=== PATIENT | male | born 1965 | race Caucasian/White ===

== ENCOUNTER 2018-07-26 12:05 | Emergency (ER) | payer BC, SELFPAY ==
[2018-07-26 12:07] VITALS: BP 142/84; PULSE 120; RESP 16; TEMP 37.6; O2SAT 96; BMI 28.6
--- NOTE | 2018-07-26 12:22 | CT_ITS ---
STUDY: CT ABDOMEN AND PELVIS WITH CONTRAST REASON FOR EXAM: Male, 52 years old. Diarrhea. RADIATION DOSAGE (If Supplied By Facility): CTDIvol = ( 13.48 ) mGy, DLP = ( 932.43 ) mGycm TECHNIQUE: Transaxial images were obtained from the dome of the diaphragm to the symphysis pubis without oral contrast. 100 ml of Isovue 300 contrast was administered. Sagittal and coronal images were reconstructed. Individualized dose optimization techniques were used for this CT. COMPARISON: None. FINDINGS: The visualized lung bases are unremarkable. The visualized portions of the heart are within normal limits. Normal liver. Normal gallbladder and extrahepatic biliary system. There is mild splenomegaly. There is heterogeneous enhancement of the spleen with multiple diminished enhancement regions measuring up to 1.5 cm. Normal pancreas. Normal bilateral adrenal glands. There is 0.5 cm stone in the upper pole of the right kidney. Normal left kidney. Normal visualized stomach. Normal small intestine. Diffuse wall thickening of the colon. The appendix is visualized and appears normal. There is diffuse atherosclerotic calcification of the abdominal aorta, without a demonstrated aneurysm. Normal inferior vena cava. Normal retroperitoneum. Wall thickening of the urinary bladder. There is mild free fluid in the pelvis. Postoperative changes in the left inguinal region. Mild degenerative change of the spine. CT/Abdomen/Pelvis W IV Cont ONLY IMPRESSION: Colitis with diffuse wall thickening could be infectious or inflammatory. No obstruction. Right renal stone. No hydronephrosis. Splenomegaly. Heterogeneous lesions in the spleen are nonspecific. Electronically Signed: Sha Kramer MD at 14:29 EST , Service support ,
--- NOTE | 2018-07-26 12:35 | ED.VISSUMM ---
- ER Visit Summary Date of Service: 07/26/18 Chief Complaint: Diarrhea History of Present Illness: The patient is a 52 M with no primary care physician. He reports he has diarrhea that began approximately a week ago. States he is having this approximately every 20 minutes. States that it is watery and has been every color to the [place]. Reports that he has blood with wiping only. Complains of a dull abdominal pains 9 at 10 worst and 4-10 currently. Is worsened by coffee and relieved by nothing. He has had nausea with dry heaves. He has had subjective fever. Patient reports approximate 1 month ago he was on amoxicillin for an ear infection. Has not been camping out of the country. No possible food exposure. He does drink well water. However the others at home to as well and they are not ill. No sick contacts. Physical Examination: Vitals: 98.6, 142/84, 120, 16, 96% room air which is not hypoxic. General: Well-nourished and well-developed. Head: Normocephalic atraumatic. Neck: Supple, no lymphadenopathy. No JVD. Nontender. Cardiovascular: Tachycardic regular rhythm. No murmurs. Respiratory: No respiratory distress. Clear to auscultation bilaterally. Abdominal: Soft, mild diffuse tenderness palpation, distended with hyperactive bowel sounds. No guarding, rebound, or peritoneal signs. Back: Nontender. Extremities: Nontender, no edema. Skin: Normal color, no rash. Neurologic: Alert and oriented ?3. Cranial nerves II through XII are intact. Normal strength and sensation. Psych: Normal affect. Test Results: CBC is marked for a white count of 16.4, platelets 142, secondary to 85, and lymphocytes of 9. Chem-7 is marked for sodium 135 and glucose 145. LFTs marked for total bili 1.5 and AST 14. Clinical Impression(s) from Imaging Studies Abdomen/Pelvis CT 07/26/18 12:22 IMPRESSION: Colitis with diffuse wall thickening could be infectious or inflammatory. No obstruction. Right renal stone. No hydronephrosis. Splenomegaly. Heterogeneous lesions in the spleen are nonspecific. Electronically Signed: Sha Kramer MD at 14:29 EST , Service support , Emergency Department Course and Treatment: Patient refused pain medications. He was given a liter normal saline. He is given Zofran IV. He is resting comfortably. I had a prolonged discussion the patient and he reports that he was actually given clindamycin prior to the amoxicillin and that it was changed because it did not work. Treatment Plan: Patient C. difficile has not returned. However, even if this is negative with the degree of his colitis and diarrhea and his history I am going to treat him for C. difficile. Unfortunately I am not able to obtain oral vancomycin for him on the weekend. I discussed this with him and he will be given Flagyl for the remainder of today and tomorrow. First dose is given in the emergency department. He will then be transitioned to vancomycin. He is also given Zofran for nausea. Instructed to follow-up with Dr. Arias in 10-14 days if not improving. He is given the name of Dr. Roche as well if he would like to see infectious disease. Return to the emergency department for any worsening symptoms. Disposition: To home in improved and stable condition. Impression: 1. Colitis, likely Clostridium difficile. This note was generated with true[x] Media dictation software. It may contain incorrect words, spelling, and punctuation that were not noted in review of the chart prior to signing ED Disposition - Plan for ED Patient: Chief Complaint: Nausea/Vomiting/Diarrhea Instructions: Clostridium difficile Infection Prescriptions: Ondansetron [Zofran Odt] 4 mg PO Q8H PRN PRN #10 tablet PRN Reason: Nausea Metronidazole [Flagyl] 500 mg PO Q8H #7 tablet Vancomycin [Vancocin] 125 mg PO Q6H #40 capsule Referrals: Douglas Roche MD [STAFF PHYSICIAN] - Tamanna Arias DO [STAFF PHYSICIAN] - 10-14 Days if not better
[2018-07-26] MEDS: 0.9% Normal Saline 1,000 ML 1000 ML IV (12:44)
[2018-07-26] MEDS: Ondansetron 4 MG/2 ML Vial IV ×2 (12:44→14:48)
[2018-07-26 12:56] LABS: Absolute Lymphocyte Count 1.45 X10^3/ul (0.83-4.51); Basophil# 0.01 X10^3/uL; Basophil% 0.1 % (0-1); Eosinophil# 0.01 X10^3/uL; Eosinophils% 0.1 % (0-5); Hemoglobin 16.5 g/dl (13.0-16.5); Lymphocyte # 1.45 X10^3/ul (4.0); Lymphocyte % 8.8 % (19-41); Mean Corp Hgb Conc 35.1 g/gl (32-36); Mean Corpuscular Hgb 30.7 pg (27.0-32.0); Mean Corpuscular Volume 87.4 fL (80-94); Mean Platelet Vol. 9.8 fl (6.2-12.0); Monocyte# 0.91 X10^3/uL; Monocyte% 5.5 % (0-10); Neutrophil % 85.3 % (47-70); Platelet Count 142 K/mm3 (150-450); RBC Distribution Width CV 13.2 % (11.6-14.6); RBC Distribution Width SD 42.3 fl (35.1-43.9); Red Blood Count 5.38 M/mm3 (4.6-6.2); White Blood Count 16.4 K/mm3 (4.4-11.0)
[2018-07-26 12:58] LABS: POSITIVE COUNT NO; POSITIVE DIFFERENTIAL NO; POSITIVE MORPHOLOGY NO
[2018-07-26 13:08] LABS: ALB/GLOB Ratio 0.9 RATIO (0.9-2.4); AST(SGOT) 14 U/L (15-37); Alanine Aminotransfer ALT/SGPT 26 U/L (16-61); Albumin, Serum 3.4 g/dL (3.2-5.0); Alkaline Phosphatase 74 U/L (45-117); Anion Gap 8 (5-15); BUN 16 mg/dL (7-18); BUN/Creat Ratio 15.8 RATIO (10-20); Calcium,Total 8.6 mg/dL (8.5-10.1); Chloride 100 mmol/L (98-107); Creatinine, Serum 1.01 mg/dL (0.70-1.30); EST Glomerular Filtration Rate 82 mL/min (>60); Est Glom Filt Rate - Afr Amer 99 mL/min (>60); Estimated Creatinine Clearance 89.05 ml/min; Globulin 3.6 g/dL (2.2-4.2); Glucose 145 mg/dL (74-106); Sodium Level 135 mmol/L (136-145)
[2018-07-26 14:54] VITALS: BP 137/66; PULSE 98; RESP 18; O2SAT 96
[2018-07-26] MEDS: metroNIDAZOLE 500 MG Tablet PO (16:33)
[2018-07-26 16:37] VITALS: BP 145/85; PULSE 99; RESP 18; O2SAT 94
--- NOTE | 2018-07-26 19:21 | ED.RN ---
AFTER PT WAS D/C'D LAB CALLED WITH CRITICAL RESULT THAT THIS PT WAS POSITIVE FOR C-DIFF. DR RAMIREZ AND CHARGE NURSE NOTIFIED, NFO RECIEVED
== END 2018-07-26 16:39 | disposition home or self-care (01) ==
LOC: ED 12:43
PROVIDERS: Emergency Provider Emergency Medicine
DX: K52.9 Noninfective gastroenteritis and colitis, unspecified (principal); R16.1 Splenomegaly, not elsewhere classified; N20.0 Calculus of kidney
CPT/HCPCS: 74177; 80053; 85025; 87493; 96361; 96374; 96375; 99284; J7030; Q9967; A4216; J2405

== ENCOUNTER 2022-12-05 07:04 | Day surgery (SDC) | payer OTHER, SELFPAY ==
[2022-12-05] VITALS (7 sets, daily range): BP systolic 102–122; BP diastolic 61–86; PULSE 63–67; RESP 14–16; TEMP 36.7–36.8; O2SAT 95–99; BMI 28.5
[2022-12-05] MEDS: Lactated Ringers 1,000 ML 15 ML IV (07:37)
--- NOTE | 2022-12-05 07:46 | HP.PCM_ITS ---
[facility] - General General Date of Admission: 12/05/22 Date of Service: 12/05/22 Chief Complaint: Screening colonoscopy HPI Narrative AYAZ GREENE, is a 57 M who presents for screening colonoscopy. Mr. Greene has no significant past medical history. He does not take any medicines on a daily basis. He has not had a colonoscopy in the past. He does not have any problems with nausea, vomiting or diarrhea. He did have a couple episodes of blood in his stool but it was secondary to hemorrhoids. [facility] Medical History (Updated 11/30/22 @ 14:35 by Maki Soni) Alcohol use Leg cramps Non-smoker Wears glasses Home Medications NK 11/30/22 [History Last Taken Unknown] Allergy/AdvReac Type Severity Reaction Status Date / Time No Known Allergies Allergy Verified 12/05/22 07:25 Surgical History (Updated 11/30/22 @ 14:28 by Maki Soni) History of cholecystectomy History of esophagogastroduodenoscopy (EGD) History of inguinal hernia repair Social History (Updated 09/25/22 @ 14:49 by Hellen Sharma) current occupational status: employed current occupation: [employer] Smoking Status: Never smoker ROS Review of Systems ROS Unobtainable: other Constitutional Constitutional: Denies fatigue, fever(s), poor appetite, weight gain or weight loss ENT HEENT: Denies mouth lesions Cardiovascular Cardiovascular: Denies abdominal bloating, abdominal edema or abdominal pain Respiratory/Chest Respiratory/Chest: Denies change in mental status, change in phlegm color, chest congestion or chest tightness Gastrointestinal Gastrointestinal: Denies belching, bloating, change in bowel habits, change in stool character, chewing difficulty, coffee ground emesis, constipation, cramping, diarrhea, dyspepsia, dysphagia, early satiety, excessive flatus, fecal incontinence, heartburn, hematemesis, hematochezia, hemorrhoids, loose stools, melena, nausea, odynophagia, rectal bleeding, tenesmus, vomiting or weight changes Genitourinary Genitourinary: Denies abdominal discomfort, burning urination or itching Musculoskeletal Musculoskeletal: Reports as per HPI; Denies muscle weakness or myalgias Integumentary Integumentary: Denies jaundice Neurologic Neurologic: Denies lack of coordination or weakness Psychiatric Psychiatric: Denies confusion, depression, memory loss, mood swings, paranoia or suicidal ideation Endocrine Endocrinology: Denies systems reviewed and no addt'l complaints, except as documented Hematologic/Lymphatic Hematologic/Lymphatic: Denies anemia, easy bleeding, easy bruising or lymphadenopathy Allergic/Immunologic Allergic/Immunologic: Denies systems reviewed and no addt'l complaints, except as documented Vital Signs Vital Signs Vital Signs: 12/05/22 07:32 12/05/22 07:32 Temperature 98.2 F Temperature Source Temporal Pulse Rate 67 Respiratory Rate 16 Respiratory Pattern Normal Blood Pressure 122/86 H Blood Pressure Mean 98 Blood Pressure Source Monitor Blood Pressure Position Semi-Fowlers Blood Pressure Location Left Arm Pulse Ox 99 Oxygen Delivery Method Room Air Weight Weight: 205 lb Body Mass Index (BMI) 28.5 Physical Exam Const alert General Appearance: cooperative Orientation / Consciousness: oriented to person HEENT hearing grossly normal bilaterally Head and Scalp: normal to inspection Face and Sinus: face symmetric Nose: external nose normal Mouth: oral and palatal mucosa normal Eyes conjunctivae normal General Eye: normal appearance of both eyes Neck full ROM General: normal visual inspection Lymph Lymphatic: no lymphadenopathy noted Chest inspection of chest normal and palpation of chest normal Chest: symmetrical chest wall rise Resp normal respiratory effort Effort and Inspection: able to speak in complete sentences Cardio regular rate GI non-distended Percussion: normal to percussion Rectal Exam: deferred Neuro Speech: speech normal Gait (Neuro): normal gait Assessment & Plan Assessment/Plan (1) Encounter for screening for malignant neoplasm of colon: PLAN: He was explained alternatives, risk, benefits including not withstanding bleeding, infection, sepsis, perforation, need for emergent surgery . He will have an ASA of 2.
--- NOTE | 2022-12-05 08:40 | OP.COLON_ITS ---
Patient Name: Carrington Avelar Procedure Date: 12/05/2022 8:15 AM Date of : 1965 Age: 57 Procedure: Colonoscopy Indications: Screening for colorectal malignant neoplasm Providers: Matt Lawrence DO Referring MD: Matt Lawrence DO Medicines: Monitored Anesthesia Care Patient Profile: This is a 57 year old male. Refer to note in patient chart for documentation of history and physical. Last Colonoscopy: none. The patient's first colonoscopy is today. Complications: No immediate complications. Procedure: Pre-Anesthesia Assessment: - Prior to the procedure, a History and Physical was performed, and patient medications and allergies were reviewed. The risks and benefits of the procedure and the sedation options and risks were discussed with the patient. All questions were answered and informed consent was obtained. Patient identification and proposed procedure were verified by the physician in the pre-procedure area. Mental Status Examination: alert and oriented. Airway Examination: normal oropharyngeal airway and neck mobility. Respiratory Examination: clear to auscultation. CV Examination: normal. Prophylactic Antibiotics: The patient does not require prophylactic antibiotics. Prior Anticoagulants: The patient has taken no previous anticoagulant or antiplatelet agents. ASA Grade Assessment: II - A patient with mild systemic disease. After reviewing the risks and benefits, the patient was deemed in satisfactory condition to undergo the procedure. The anesthesia plan was to use monitored anesthesia care (MAC). Immediately prior to administration of medications, the patient was re-assessed for adequacy to receive sedatives. The heart rate, respiratory rate, oxygen saturations, blood pressure, adequacy of pulmonary ventilation, and response to care were monitored throughout the procedure. The physical status of the patient was re-assessed after the procedure. After I obtained informed consent, the scope was passed under direct vision. Throughout the procedure, the patient's blood pressure, pulse, and oxygen saturations were monitored continuously. The pediatric colonoscope was introduced through the anus and advanced to the cecum, identified by appendiceal orifice and ileocecal valve. The colonoscopy was performed without difficulty. The patient tolerated the procedure well. The quality of the bowel preparation was adequate. Scope In: 8:24:09 AM Scope Withdrawal Time 0 hours 7 minutes 9 seconds Scope Out: 8:34:43 AM Total Procedure Duration Time 0 hours 10 minutes 34 seconds Findings: The perianal and digital rectal examinations were normal. A few small-mouthed diverticula were found in the recto-sigmoid colon and sigmoid colon. The exam was otherwise without abnormality on direct and retroflexion views. Impression: - Diverticulosis in the recto-sigmoid colon and in the sigmoid colon. - The examination was otherwise normal on direct and retroflexion views. - No specimens collected. Recommendation: - Discharge patient to home. - Resume previous diet. - Continue present medications. - Repeat colonoscopy in 10 years for screening purposes. Procedure Code(s): --- Professional --- G0121, Colorectal cancer screening; colonoscopy on individual not meeting criteria for high risk CPT copyright 2017 [employer]. All rights reserved. The codes documented in this report are preliminary and upon systems administrator review may be revised to meet current compliance requirements. Matt Lawrence DO 12/05/2022 8:39:37 AM This report has been signed electronically. Number of Addenda: 0 Note Initiated On: 12/05/2022 8:15 AM
--- NOTE | 2022-12-05 08:41 | OP.CCLET_ITS ---
12/05/2022 Tahira West [place] [id number] [address] Re : Colonoscopy procedure for Carrington Avelar Dear Dr. West This procedure was performed on Monday, December 05, 2022. My impressions and recommendations are as follows: Impressions : - Diverticulosis in the recto-sigmoid colon and in the sigmoid colon. - The examination was otherwise normal on direct and retroflexion views. - No specimens collected. Recommendations : - Discharge patient to home. - Resume previous diet. - Continue present medications. - Repeat colonoscopy in 10 years for screening purposes. My findings are described in the full procedure note, which is enclosed. If I can be of further assistance, please feel free to contact me at . Sincerely, Matt Lawrence, 12/05/2022 8:39:37 AM This report has been signed electronically.
== END 2022-12-05 09:28 | disposition home or self-care (01) ==
LOC: EN 07:06 → AC 07:07
PROVIDERS: PCP Family Medicine; Referring Provider Family Medicine; Visit Provider Internal Medicine Gastroenterology
PROC: 0DJD8ZZ Inspection of Lower Intestinal Tract, Via Natural or Artificial Opening Endoscopic (ICD-10-PCS; CPT 45378; principal; 2022-12-05 08:10)
DX: Z12.11 Encounter for screening for malignant neoplasm of colon (principal); K57.30 Diverticulosis of large intestine without perforation or abscess without bleeding; K64.9 Unspecified hemorrhoids
CPT/HCPCS: G0121; J7120; J2405

== ENCOUNTER → 2023-05-14 | Outpatient (CLI) | payer OTHER, SELFPAY ==
--- NOTE | 2023-05-14 17:50 | CT_ITS ---
We are attempting to reach an attending provider to discuss findings. An addendum with communication details will be sent when the communication is complete. INDICATION: right groin pain EXAMINATION: CT Pelvis W/ Contrast Injection TECHNIQUE: Routine noncontrast bone CT protocol was performed of the pelvis. 2-D reformats were performed by the technologist. A radiation dose optimization technique was used for this scan. IV Contrast dosage and agent: None. RADIATION DOSAGE (If Supplied By Facility): CTDIvol = ( 28.20 ) mGy, DLP = ( 1936.37 ) mGycm COMPARISON: FINDINGS: There is gas noted along the wall of the urinary bladder suggesting emphysematous cystitis. No soft tissue swelling or gas. No radiopaque foreign body. No acute fracture or subluxation. Normal alignment. Preservation of the joint space. No sclerotic or destructive changes. CT/Pelvis WITH IV Contrast IMPRESSION: There is gas noted along the wall of the urinary bladder suggesting emphysematous cystitis. Electronically Signed: Keagan Reed DO at 18:50 EDT ,
== END | disposition home or self-care (01) ==
LOC: CT 17:48
PROVIDERS: PCP Family Medicine; Referring Provider Surgery; Visit Provider Surgery
DX: R19.09 Other intra-abdominal and pelvic swelling, mass and lump (principal); R10.31 Right lower quadrant pain
CPT/HCPCS: 72193; Q9967

== ENCOUNTER → 2024-10-23 | Outpatient (CLI) | payer OTHER, SELFPAY ==
[2024-10-23 12:47] LABS: Hemoglobin A1c 5.6 % (<=5.6)
[2024-10-23 13:03] LABS: HIV Nonreactive (Nonreactive); PSA,Total - Annual Screen 4.67 ng/mL (0.02-4.00)
== END | disposition home or self-care (01) ==
LOC: LAB 11:39
PROVIDERS: PCP Family Medicine; Referring Provider Family Medicine; Visit Provider Family Medicine
DX: Z00.00 Encounter for general adult medical examination without abnormal findings (principal); Z20.2 Contact with and (suspected) exposure to infections with a predominantly sexual mode of transmission; Z12.5 Encounter for screening for malignant neoplasm of prostate; R73.01 Impaired fasting glucose
CPT/HCPCS: 36415; 83036; 84153; 86703; 87491; 87591; G0103

== ENCOUNTER → 2024-11-11 | Outpatient (CLI) | payer OTHER, SELFPAY | END | disposition home or self-care (01) | LOC: SL 13:08 | PROVIDERS: PCP Family Medicine; Referring Provider Family Medicine; Visit Provider Family Medicine | DX: G47.33 Obstructive sleep apnea (adult) (pediatric) (principal) | CPT/HCPCS: 95806 ==

== ENCOUNTER → 2024-11-26 | Outpatient (CLI) | payer OTHER, SELFPAY | END | disposition home or self-care (01) | LOC: SL 14:19 | PROVIDERS: PCP Family Medicine; Visit Provider Family Medicine | DX: Z46.89 Encounter for fitting and adjustment of other specified devices (principal) ==

== ENCOUNTER → 2025-04-21 | Outpatient (CLI) | payer OTHER, SELFPAY ==
[2025-04-21 17:05] LABS: PSA,Total- Diagnostic 3.93 ng/mL (0.00-4.00)
== END | disposition home or self-care (01) ==
LOC: LAB 16:03
PROVIDERS: PCP Family Medicine; Referring Provider Family Medicine; Visit Provider Family Medicine
DX: R97.20 Elevated prostate specific antigen [PSA] (principal)
CPT/HCPCS: 36415; 84153